=== PATIENT | female | born 1980 | race African-American/Black ===

== ENCOUNTER 2016-06-19 12:53 | Emergency (ER) | payer BC ==
[~2016-06-19] VITALS: Ht 172.7 cm; Wt 125.0 kg
[~2016-06-19 12:53] MED LIST: FLUC150T PO; PHEN-412 PO
[2016-06-19 12:58] VITALS: Ht 172.7 cm; Wt 125.0 kg
--- OUTSIDE RECORDS SUMMARY | 2016-06-19 13:11 | XMS REPORT | Continuity of Care Document ---
Author Author [facility] Organization [facility] Address Unknown Phone Unavailable Support Name Relationship Address Phone AUGUST, GORDO Up DO Caregiver [address] [place] [address] Unavailable Insurance Providers Guarantor Marily Melendez Address [address] [place] [address] VIANEY STAUFFER [address] Email [email or web address] Self Pay Subscriber's Name Marily Melendez Relationship 18 Self Chief Complaint and Reason for Visit Chief Complaint General Reason for Visit [id number] Problems Past Problems Medical Problem Onset Date Vaginal itching Unknown Medications Current Home Medications Medication Dose Units Route Directions Days Qty Instructions Start Date Fluconazole (Diflucan) 150 Mg Tablet 1 Tab Oral Onetime 1 Tablet Phentermine Hcl 37.5 Mg Capsule 37.5 Mg Oral Every Morning Social History Social History Problem Response Recorded Date/Time Onset Date Status Hx Alcohol Use No 11/11/2015 6:24pm Not Applicable Not Applicable Query Response Start Date Stop Date Smoking Status Never smoker Hospital Discharge Instructions No hospital discharge instructions. Plan of Care Discharge Date 11/11/15 6:39pm Disposition 01 DISCHARGED HOME, SELF-CARE Condition at Discharge Stable Instructions/Education Provided DI for Vaginal Itching Prescriptions See Medication Section Additional Instructions/Education Take the Diflucan as prescribed. Follow up with a primary care provider for the immunizations and for further evaluation if this is not improving at all. Care Plan and Goals Physician Care Plan Problem:Vaginal Itching Goal: Follow up with primary care provider Instructions: Take medications and follow care plan as discussed/written Functional Status No functional status results. Allergies, Adverse Reactions, Alerts No known allergies. Immunizations No immunization records. Vital Signs Acute Vital Signs Vital Response Date/Time Temperature (Fahrenheit) 98.3 deg F (96.8 - 99.1) 11/11/2015 5:40pm Temperature (Calculated Celsius) 36.60870 degrees C (36.0 - 37.3) 11/11/2015 5:40pm Pulse Rate (adult) 64 bpm (60 - 100) 11/11/2015 6:39pm Respiratory Rate 16 breaths/min (10 - 20) 11/11/2015 6:39pm O2 Sat by Pulse Oximetry 98 % (90 - 100) 11/11/2015 6:39pm Blood Pressure 124/66 mm Hg 11/11/2015 6:39pm Height (Feet) 5 feet 11/11/2015 5:40pm Height (Inches) 7.00 inches 11/11/2015 5:40pm Weight (Kilograms) 120.200 kg 11/11/2015 5:40pm Body Mass Index (BMI) 41.0 11/11/2015 5:40pm Results No known relevant diagnostic tests, laboratory data and/or discharge summary. Procedures No known history of procedures. Encounters Encounter Location Arrival/Admit Date Discharge/Depart Date Attending Provider Departed Emergency Room [facility] 11/11/15 5:36pm 11/11/15 6: 39pm GORDO MENESES DO Recent Diagnosis
--- NOTE | 2016-06-19 13:17 | ERPDOC ---
Departure Disposition Decision Date: Jun 19, 2016 Disposition Decision Time: 14:14 Disposition: 01 DISCHARGED HOME, SELF-CARE Impression Impression Impression: Primary Impression: Vaginal odor Condition: Stable Seen By: Mid-level only Referrals: [facility] follow up in one week if not improving Patient Instructions: Vulvovaginal Candidiasis (ED) Problems/Meds/Labs Reviewed?: Yes Medications reviewed and manag: Yes Follow up care ordered?: Yes Mental Status: Alert, Oriented Scripts No Active Prescriptions or Reported Meds HPI - Female General Chief Complaint: Female Urogenital Problems Stated Complaint: ABD PAIN Time Seen by Provider: 13:13 Source: patient Exam Limitations: no limitations HPI - Female Initial Comments Patient is concerned about vaginal odor. She denies abdominal pain . She also denies vaginal discharge. Denies any concern for STD although has had one in the past. was treated for that infection and has not been sexually active since Patient denies pelvic or abdominal Pain and declines pelvic exam . was recently treated with diflucan for a yeast infection Occurred At: home Onset: Gradual Duration: 12-24 hrs Severity/Quality: other (denies pain ) Activities at Onset: none Prior Genitourinary Problems: similar symptoms Sexual Solis History: not active Associated Symptoms: DENIES: abdominal pain, fever/chills, lumps Hx of Similar Symptoms: Yes Is Pt now?: No Hx Last Menstrual Period: 06/12/16 Allergies: Coded Allergies: No Known Allergies (Unverified , 07/05/16) Past History Past Medical History Pt denies signifigant PMH Surgical History Denies Surgeries Social History Substance Use Type: does not use Sexuality: male partner Review of Systems Constitutional Constitutional: fever, see HPI, DENIES: chills, dizziness, weight gain, weight loss Eyes General: DENIES: burning, itching Lids/Accessories: DENIES: erythema ENMT Ears: DENIES: pain Hearing: DENIES: tinnitus Balance: DENIES: vertigo Sinuses: DENIES: rhinorrhea Mouth/Throat: sore throat, DENIES: scratchy throat Teeth: DENIES: pain Jaw: see HPI Cardiovascular Cardiac: DENIES: chest pain Pulmonary Respiratory: DENIES: cough, sputum GI Upper Abdomen: DENIES: nausea, pain, vomiting Lower Abdomen: DENIES: diarrhea, pain General: DENIES: dysuria, frequency, urgency Musculoskeletal General: DENIES: cramps, pain, weakness Integumentary Skin: DENIES: itching, rash Neurological General: DENIES: headache, syncope Endocrine Endocrine: see HPI Hematologic/Lymphatic Hematologic/Lymphatic: DENIES: anemia, easy bruising Allergic/Immunological Allergic/Immunoligical: DENIES: hives, sneezing All other Systems All Other Systems: Reviewed and Negative Physical Exam General General Nourishment: well nourished, well developed, appears stated age, no acute distress, adult, obese Vitals and Pain Weight: Kilograms: 125.000 Height (feet): 5 Height (inches): 8.00 Triage Pain Scale: Normal Exams: Head: Normocephalic w/o trauma Eyes: Pupils are PERRLA w/ EOMI, No scleral icterus, irritation, or foreign bodies noted Neck: Full range of motion, without adenopathy, JVD, bruits or thyromegaly Chest/Resp: Clear all vu, with good airflow, and symmetry bilaterally CV: Regular rate and rhythm, without murmur or gallop, Pulses 2+ all extremities, capillary refill, <2 seconds all ext., no pedal edema noted Lymphatic: No lymphadenopathy, or lymphedema noted Musculoskeletal: No tenderness, or deformity noted, good range of motion, all extremities Integumentary: No rashes, hives, or bruising noted, hair and nails, without abnormality Neurologic: Patient is alert, and oriented, cranial nerves, motor/sensory/ cerebellar, exams w/o gross deficits, to observation Differential Diagnoses Considering: Appendicitis, Dysmenorrhea, Hemorrhage, PID, UTI, Bacterial Vaginitis, Yeast Vaginitis, Trichomonas Vaginitis Progress Results/Orders Orders Procedure Category Date Status Time Gc - Chlamydia Pcr LAB 06/19/16 Complete 13:20 Microscopic Exam (Wet LOVELY 06/19/16 Complete Prep-Raimundo 13:20 Lab Results Laboratory Tests Test 06/19/16 13:41 Chlamydia trachomatis DNA (PCR) Positive N. gonorrhoeae DNA Specimen Source Cervical/vaginal Neisseria gonorrhoeae DNA (PCR) Negative TAD GONZALEZ APRN Jun 19, 2016 13:16
[2016-06-19] MEDS ORDERED: NO ROUTINE MEDS (13:22)
[2016-06-19] MEDS ORDERED: FLUC150T PO (14:17)
[2016-06-19 14:31] VITALS: BP 143/96; PULSE 73; RESP 18; TEMP 98.2; O2SAT 98
--- NOTE | 2016-06-20 10:30 | NUR ---
CULTURE REPORT ATTEMPTED TO CALL PT, LEFT VOICEMAIL TO CONTACT ED CHARGE NURSE FOR RESULTS OF CULTURES, PHONE NUMBER LEFT FOR PT.
--- NOTE | 2016-06-20 13:45 | NUR ---
NOTE LEFT AN ADDITIONAL VOICEMAIL FOR PT.
--- NOTE | 2016-06-21 06:42 | NUR ---
CULTURE REPORT ATTEMPTED TO CALL PT, LEFT VOICEMAIL TO CONTACT ED CHARGE NURSE FOR RESULTS OF CULTURES, PHONE NUMBER LEFT FOR PT.
--- NOTE | 2016-06-21 09:42 | NUR ---
CULTURE NOTE Patient returned call regarding culture results. After verification of patient ID, I discussed findings of Chlamydia with patient, need for Rx and followup with PCP. She reports she will followup with [facility]. RX by Dr Hank Jaquez called to [facility] Azithromycin 2 gm PO x 1 single dose, per pt pharmacy preference.
== END 2016-06-19 14:31 | disposition home or self-care (01) ==
LOC: ED 12:53
DX: N94.89 Other specified conditions associated with female genital organs and menstrual cycle (principal)
CPT/HCPCS: 87210; 87220; 87491; 87591

== ENCOUNTER → 2016-07-13 | Outpatient (CLI) | payer BC ==
--- NOTE | 2016-07-13 13:56 | DI ---
Indication: ITS.REASON: E04.9 Nontoxic goiter, unspecified PROCEDURE: US THYROID: Encounter: Initial Comparison: None Technique: Grayscale and color Doppler sonographic imaging of the thyroid gland was performed. Findings: Right thyroid lobe is heterogeneous with a large mixed echogenicity nodule occupying much of the lobe measuring 2.7 x 1.7 x 2.2 cm in size. This is wider than tall with some internal vascularity and a cystic space. Left thyroid lobe is also heterogeneous with a large nodule replacing most of the normal thyroid tissue measuring 3.6 x 2.1 x 2.3 cm in size. This is of mixed echogenicity as well. There is an additional 2.5 x 2 x 2.3 cm nodule in the inferior aspect of the left lobe. The thyroid isthmus is enlarged showing a 2.5 x 1.7 x 2.4 cm nodule in the midportion and an additional 1.6 x 0.9 x 1.3 cm similar-appearing nodule in the superior right aspect. There is also a 2.9 x 2.4 x 2.1 cm similar nodule in the inferior aspect of the enlarged isthmus. Doppler flow seen to all of the thyroid nodules. Right lobe measures 4.4 x 2.4 x 2.4 cm. Left lobe measures 5.7 x 2.7 x 2.6 cm. Impression: Multinodular thyroid goiter. Given the diffuse abnormalities and multiple similar-appearing nodules, fine-needle aspiration or biopsy is typically unnecessary. .
== END ==
LOC: IMA 13:04
PROVIDERS: ATTEND Family Medicine
DX: E04.2 Nontoxic multinodular goiter (principal); E04.9 Nontoxic goiter, unspecified

== ENCOUNTER 2016-08-23 15:42 | Emergency (ER) | payer BC ==
[~2016-08-23] VITALS: Ht 170.2 cm; Wt 128.5 kg
[2016-08-23 15:45] VITALS: TEMP 98.3; Ht 170.2 cm; Wt 128.5 kg
--- OUTSIDE RECORDS SUMMARY | 2016-08-23 15:45 | XMS REPORT | Continuity of Care Document ---
Author Author [facility] Organization [facility] Address Unknown Phone Unavailable Support Name Relationship Address Phone SAM LARA MD Caregiver [address] [place] [address] Unavailable SAMRA BLACKWOOD MD Caregiver [address] [facility] [address] [place] [address] Unavailable RODOLFO MENDEZ Next Of Kin [address] [place], [place] [id number] Insurance Providers Guarantor Marily Melendez Address [address] [place] [address] Email [email or web address] Payer [facility] Policy Number [id number] Subscriber's Name NoraMarily Jones Relationship 18 Self Group Number [id number] Advance Directives Directive Response Recorded Date/Time Dr Ordered Resuscitation Status Full Code 07/04/16 12:05pm Resuscitation Documents on File No 07/05/16 7:15am DPOA for Healthcare Only No 07/05/16 7:15am Living Will No 07/05/16 7:15am Problems Active Problems Medical Problem Onset Date Status Vaginal odor Unknown Acute Past Problems Medical Problem Onset Date Vaginal itching Unknown Medications No known medications. Social History Social History Problem Response Recorded Date/Time Onset Date Status Reason for Hospitalization EGD 07/05/2016 9:01am Not Applicable Not Applicable Chewing Tobacco Status No 07/04/2016 3:54pm Not Applicable Not Applicable Hx Substance Use No 07/04/2016 3:54pm Not Applicable Not Applicable Hx Alcohol Use No 07/04/2016 3:54pm Not Applicable Not Applicable Has the pt used tobacco in the last 12 months No 07/04/2016 3:54pm Not Applicable Not Applicable Tobacco Usage none 11/13/2015 1:29pm Not Applicable Not Applicable Query Response Start Date Stop Date Smoking Status Never smoker Hospital Discharge Instructions Instructions: Care Instructions: I was in the hospital because (patient own words): SCOPE DOWN MY THROAT Discharge Diet: You may resume your usual diet. Discharge Activity: You may resume your usual activity. Follow Up Appointments: No specific follow-up appointment with Dr. Blackwood is necessary. You can call his office for any questions or concerns. Pending Lab / Results: Will be notified Patient Instructions: Do not drive, operate machinery, drink alcohol, or sign important papers for 24 hours. Expected Signs/Symptoms: You may have some gas discomfort. Notify Physician If: Contact Dr. Blackwood if you have a fever over 101 degrees, severe abdominal pain, or severe rectal bleeding. During Business Hours:: During office hours, call Dr. Blackwood's office at [phone]. After Business Hours:: After hours, please call [facility] at [phone] and have the cement crusher operator page Dr. Blackwood the covering physician. Pain Management/Treatment: You should not have significant pain following the procedure. Wound/Incision Care: No wound care required. Condition at time of discharge: Good Plan of Care Discharge Date 07/05/16 9:49am Instructions/Education Provided [facility] Prescriptions See Medication Section Functional Status Query Response Date Recorded Ability to complete ADL's impeded by No change July 05, 2016 7:15am Allergies, Adverse Reactions, Alerts No known allergies. Immunizations Query Response on File Recorded Date/Time Hx Influenza Vaccination No 07/04/16 3:54pm Hx Pneumococcal Vaccination No 07/04/16 3:54pm Hx Influenza Vaccination No 07/04/16 3:54pm Influenza Vaccine Hx NO 06/19/16 1:12pm Vital Signs Acute Vital Signs Vital Response Date/Time Temperature (Fahrenheit) 97.1 deg F (96.8 - 99.1) 07/05/2016 8:55am Temperature (Calculated Celsius) 36.06187 degrees C (36.0 - 37.3) 07/05/2016 8:55am Temperature Source Temporal 07/05/2016 8:55am Pulse Rate (adult) 65 bpm (60 - 100) 07/05/2016 9:25am Respiratory Rate 12 breaths/min (10 - 20) 07/05/2016 9:25am O2 Sat by Pulse Oximetry 98 % (90 - 100) 07/05/2016 9:25am Oxygen Delivery Method Room Air 07/05/2016 9:25am Blood Pressure 113/57 mm Hg 07/05/2016 9:25am Blood Pressure Source Automatic Cuff 07/05/2016 9:25am Height (Feet) 5 feet 07/05/2016 7:15am Height (Inches) 6.00 inches 07/05/2016 7:15am Weight (Kilograms) 126.700 kg 07/05/2016 7:15am Body Mass Index (BMI) 45.1 07/05/2016 7:15am Results Laboratory Results Test Name Result Units Flags Reference Collection Date/Time Result Date/ Time Comments N. gonorrhoeae DNA Specimen Source CERVICAL/VAGINAL 06/19/2016 1: 41pm 06/19/2016 3:44pm Procedures Procedure Status Date Provider(s) Contrast x-ray esophagus Completed 06/23/16 Esophagogastroduodenoscopy (EGD) with closed biopsy Completed 07/05/16 SAMRA BLACKWOOD MD Encounters Encounter Location Arrival/Admit Date Discharge/Depart Date Attending Provider Departed [facility] 07/05/16 6:40am 07/05/16 9: 49am SAMRA BLACKWOOD MD Registered Clinic [facility] 06/23/16 8:30am SAM LARA MD Departed Emergency Room [facility] 06/19/16 12:53pm 06/19/16 2: 31pm TOBIN FISHER MD
--- NOTE | 2016-08-23 15:56 | NUR ---
ROOM REMAINS IN TRIAGE UNTIL OPEN RM
[2016-08-23] MEDS ORDERED: ACET-2321 PO (16:06)
[2016-08-23 16:28] VITALS: BP 136/100; PULSE 84; RESP 18; O2SAT 100
[2016-08-23] MEDS ORDERED: ORPHENADRINE 60mg/2ml INJECTION IM ONE (16:30)
[2016-08-23] MEDS ORDERED: KETOROLAC 60mg/2ml INJECTION IM ONE (16:30)
--- NOTE | 2016-08-23 16:31 | ERPDOC ---
Departure Disposition Decision Date: August 23, 2016 Disposition Decision Time: 17:35 Disposition: 01 DISCHARGED HOME, SELF-CARE Impression Impression Impression: Primary Impression: Migraine Qualified Codes: G43.009 - Migraine without aura, not intractable, without status migrainosus Additional Impression: Vaginal odor Condition: Stable Seen By: Mid-level only Referrals: SAM LARA MD (Family) follow up with your doctor as needed. Patient Instructions: Acute Headache (ED), Vaginal Discharge (ED) Problems/Meds/Labs Reviewed?: Yes Medications reviewed and manag: Yes Additional Instructions: VAGINAL CULTURES WILL RESULT IN 3 DAYS; YOU WILL BE NOTIFIED IF AN INFECTION IS PRESENT. Follow up care ordered?: Yes Mental Status: Alert, Oriented HPI - Headache General Chief Complaint: Headache Stated Complaint: MIGRAINE Time Seen by Provider: 16:02 Source: patient Exam Limitations: no limitations HPI - Headache Initial Comments Patient complains of right sided headache Does have hx of migraines. Denies fevers or chills Patient concerned about vaginal infection; denies concern for STD; has had hx of BV in the past. Patient requests to self swab as she has done this in the past. Denies pelvic pain Occurred At: home Onset: Constant Duration: 6-12 hrs Severity/Quality: mild, moderate Location: frontal Prior Headaches/Recent Trauma: no recent headache/trauma, occasional headaches Associated Symptoms: DENIES: denies symptoms Allergies: Coded Allergies: prednisone (Verified Allergy, Unknown, 08/23/16) Uncoded Allergies: ANTIHISTAMINES (Allergy, Unknown, SWELLING, 08/23/16) STEROIDS (Allergy, Unknown, SWELLING, 08/23/16) Past History Past Medical History Pt denies signifigant PMH Surgical History Denies Surgeries Vaccines Hx Influenza Vaccination: No Hx Pneumococcal Vaccination: No Social History Does patient use chewing tobac: No Second Hand Exposure: No Substance Use Type: does not use Review of Systems Constitutional Constitutional: see HPI, DENIES: chills, dizziness, fever Eyes General: DENIES: burning, itching, pain Lids/Accessories: DENIES: swelling Vision: DENIES: double vision ENMT Ears: DENIES: see HPI Hearing: DENIES: tinnitus Balance: DENIES: vertigo Sinuses: DENIES: rhinorrhea Mouth/Throat: DENIES: scratchy throat, sore throat Cardiovascular Cardiac: DENIES: chest pain, orthopnea Rhythm/Rate: DENIES: tachycardia Pulmonary Respiratory: DENIES: cough, dyspnea, pleuritic chest pain GI Upper Abdomen: DENIES: nausea, pain, see HPI Lower Abdomen: DENIES: diarrhea, pain General: DENIES: dysuria, frequency, pain, urgency Musculoskeletal General: DENIES: cramps, pain, weakness Neurological General: headache, see HPI, DENIES: numbness, seizures, syncope, weakness Hematologic/Lymphatic Hematologic/Lymphatic: DENIES: anemia All other Systems All Other Systems: Reviewed and Negative Physical Exam General General Nourishment: well nourished, well developed, appears stated age, no acute distress, adult, obese Vitals and Pain First Documented Vital Signs Date Time Temp Pulse Resp B/P Pulse Ox O2 Delivery O2 Flow Rate FiO2 08/23/16 15:45 98.3 85 16 142/85 100 Room Air Weight: Kilograms: 128.500 Height (feet): 5 Height (inches): 7.00 Triage Pain Scale: Normal Exams: Head: Normocephalic w/o trauma Eyes: Pupils are PERRLA w/ EOMI, No scleral icterus, irritation, or foreign bodies noted Fundi: Disks flat and sharp, No hemorrhages, or AV nicking noted ENMT: No facial trauma, nasal exudates, pharyngeal erythema, or exudates are noted Neck: Full range of motion Chest/Resp: Clear all vu CV: Regular rate and rhythm, without murmur or gallop, Pulses 2+ all extremities, capillary refill, <2 seconds all ext., no pedal edema noted Abdomen: Bowel sounds positive Lymphatic: No lymphadenopathy, or lymphedema noted Musculoskeletal: No tenderness, or deformity noted, good range of motion Integumentary: No rashes, hives, or bruising noted, hair and nails, without abnormality Neurologic: Patient is alert, and oriented, cranial nerves, motor/sensory/ cerebellar, to observation Psychiatric: Patient exhibits, appropriate attention, emotion and affect Differential Diagnoses Considering: Carbon Monoxide Toxicity, Cerebral Hemorrhage, Cervical Strain, CVA - Thrombotic, CVA - Hemorrhagic, Headache, Headache - Migraine Progress Results/Orders Orders Procedure Category Date Status Time Ketorolac (Toradol) PHA 08/23/16 Complete 16:30 Orphenadrine (Norflex) PHA 08/23/16 Complete 16:30 Microscopic Exam (Wet LOVELY 08/23/16 Complete Prep-Raimundo 16:25 Ua, Dip Wreflex LAB 08/23/16 Complete Microsc & Fur Stretcher 16:49 LAB 08/23/16 Complete Qualitative, Urine 16:49 Gc - Chlamydia Pcr LAB 08/23/16 Complete 17:04 Genital Culture LOVELY 08/23/16 In Process W/Gram Stain 17:04 Lab Results Laboratory Tests Test 08/23/16 17:03 08/23/16 17:04 Urine Collection Type Voided-not cc-midstr Urine Color Yellow Urine Turbidity Clear Urine pH 5.5 Urine Specific [place] 1.010 Urine Protein Negative Urine Glucose (UA) Negative Urine Ketones Negative Urine Blood Trace-lysed Urine Nitrite Negative Urine Bilirubin Negative Urine Urobilinogen 0.2EU/DL Urine Leukocyte Esterase Negative Urinalysis Comment Microscopic not ind. Urine Test Negative Chlamydia trachomatis DNA (PCR) Negative N. gonorrhoeae DNA Specimen Source Cervical/vaginal Neisseria gonorrhoeae DNA (PCR) Negative Medications Current ED Medications Ketorolac Tromethamine (Toradol) 60 mg O ONCE IM Last administered on 16:46; Start 08/23/16 at 16:30; Stop 08/23/16 at 16:32; Status DC Orphenadrine Citrate (Norflex) 60 mg O ONCE IM Last administered on 08/23/16 16:46; Start 08/23/16 at 16:30; Stop 08/23/16 at 16:32; Status DC TAD GONZALEZ APRN August 23, 2016 16:31
--- NOTE | 2016-08-23 17:08 | NUR ---
LAB SWABS AND URINE TAKEN TO LAB AT THIS TIME. WARM BLANKET PROVIDED FOR COMFORT.
[2016-08-23 17:17] LABS: BLOOD, URINE TRACE-LYSED (NEGATIVE); COLOR,URINE YELLOW (YELLOW); LEUKOCYTE ESTERASE ,URINE NEGATIVE (NEGATIVE); NITRITE,URINE NEGATIVE (NEGATIVE); UROBILINOGEN,URINE 0.2 EU/DL (NORMAL)
--- NOTE | 2016-08-23 17:34 | NUR ---
PROVIDER Nehemias GONZALEZ PATIENT CARE REPRESENTATIVE IN TO SEE PATIENT.
== END 2016-08-23 17:41 | disposition home or self-care (01) ==
LOC: ED 15:42
DX: G43.009 Migraine without aura, not intractable, without status migrainosus (principal); N94.89 Other specified conditions associated with female genital organs and menstrual cycle
CPT/HCPCS: 81003; 81025; 87070; 87205; 87210; 87220; 87491; 87591; 96372; 99284; J1885; J2360